=== PATIENT | female | born 1935 | race Caucasian/White ===

== ENCOUNTER 2016-10-09 08:48 | Inpatient (IN) | payer OTHER, BC ==
[~2016-10-09] VITALS: Ht 157.5 cm; Wt 63.3 kg
[~2016-10-09 08:48] MED LIST: ALPRAZOLAM0.25 M2 PO; ASCORBIC ACID250 MG PO; ASPIR 8181 M1 PO; ASPIR-LOW81 MG PO; ATARAX,VISTARIL25 MG PO; AUGMENTIN500 MG PO; AUGMENTIN875 MG PO; CALCIUM 500 MG1 EACH PO; CALCIUM500 M4 PO; CARDIZEM60 MG PO; CILOSTAZOL50 MG PO; DIGOXIN250 MCG PO; DOCUSATE SODIU100 MG PO; DUONEB 2.5-0.5 M3 ML AEROSOL; ELIQUIS5 MG PO; FERROUS SULFAT325 MG PO; FLAXSEED OIL1000 M4 PO; FLEXERIL10 MG PO; HYDROXYZINE HCL25 MG PO; HYTRIN5 MG PO; IRON160 M1 PO; LOPRESSOR50 MG PO; LOVENOX40 MG/0.4 SC; METOPROLOL TART25 MG PO; METOPROLOL TART50 MG PO; MICARDIS40 MG PO; MICARDIS80 MG PO; MOBIC7.5 MG PO; OCUVITE TABLET1 EACH PO; OMEPRAZOLE20 MG PO; OXYCODONE HCL5 MG PO; POLYETHYLENE GL17 GM PO; PRILOSEC20 MG PO; RECLAST5 MG/100 M IV; SENNA-TIME S T1 EACH PO; TELMISARTAN80 MG PO; TYLENOL REGULA325 MG PO; Tums,OsCal PO; VALIUM5 MG PO; VICODIN,LORT1 TABLET PO; VITAMIN C125 MG PO; VITAMIN D250000 UNIT PO; VITAMIN D5000 UNIT PO; XARELTO20 MG PO
[2016-10-09 19:48] VITALS: BP 155/75
[2016-10-09 19:51] VITALS: BP 155/75
[2016-10-09 23:17] VITALS: BP 156/72
[2016-10-10 03:57] VITALS: BP 166/74
[2016-10-10 05:43] LABS: HEMATOCRIT 38.4 % (36.0-46.0); MCH 30.6 PG (29.0-34.0); MCHC 33.6 G/DL (30.0-36.0); MCV 91.2 FL (83-99); MEAN PLAT.VOLUME 11.3 uM^3 (9.5-12.4); PLATELET COUNT 132 K/uL (156-360); RBC DIS.WIDTH-CV 13.6 % (11.8-14.6); RBC DIS.WIDTH-SD 45.7 % (39-53); RED BLOOD COUNT 4.21 M/uL (3.80-5.20)
[2016-10-10 05:44] LABS: WHITE BLOOD COUNT 13.7 K/uL (4.1-10.2)
[2016-10-10 06:09] LABS: ANION GAP 11 MEQ/L (2-14); CHLORIDE 106 MEQ/L (99-109); GFR ESTIMATE (CALCULATED) > 59 mL/min/; GLUCOSE 119 mg/dL (70-99); POTASSIUM 3.8 MEQ/L (3.7-5.4); SAMPLE HEMOLYSIS CHECK 0; SAMPLE ICTERIC CHECK 0; SAMPLE LIPEMIA CHECK 0; SODIUM 140 MEQ/L (136-147); UREA NITROGEN (BUN) 16 mg/dL (9-23)
[2016-10-10 07:37] VITALS: BP 154/72
[2016-10-10 10:45] VITALS: BP 138/60
[2016-10-10 11:52] VITALS: BP 140/70
[2016-10-10 19:52] VITALS: BP 102/60
[2016-10-10 23:20] VITALS: BP 94/53
[2016-10-11] VITALS (19 sets, daily range): BP systolic 102–163; BP diastolic 56–105
[2016-10-11 06:39] LABS: HEMATOCRIT 37.7 % (36.0-46.0); MCH 29.8 PG (29.0-34.0); MCHC 32.4 G/DL (30.0-36.0); MCV 92.2 FL (83-99); MEAN PLAT.VOLUME 11.5 uM^3 (9.5-12.4); PLATELET COUNT 155 K/uL (156-360); RBC DIS.WIDTH-CV 13.4 % (11.8-14.6); RED BLOOD COUNT 4.09 M/uL (3.80-5.20); WHITE BLOOD COUNT 11.8 K/uL (4.1-10.2)
[2016-10-11 07:09] LABS: ANION GAP 9 MEQ/L (2-14); CHLORIDE 104 MEQ/L (99-109); GFR ESTIMATE (CALCULATED) > 59 mL/min/; GLUCOSE 110 mg/dL (70-99); POTASSIUM 3.7 MEQ/L (3.7-5.4); SAMPLE HEMOLYSIS CHECK 0; SAMPLE ICTERIC CHECK 0; SAMPLE LIPEMIA CHECK 0; SODIUM 139 MEQ/L (136-147); UREA NITROGEN (BUN) 20 mg/dL (9-23)
[2016-10-11 11:37] LABS: BASE EXCESS 0.3 mEq/L (-3 to +3); BICARBONATE 23.3 mEq/L (22-26); CARBOXY HGB 2.6 % (0-5); COMMENTS - BLOOD GASES A+C+; DEVICE NC; METHEMOGLOBIN 1.5 % (0-1.5); O2 FLOW 5 L/MIN; PCO2 32 mm Hg (35-45); PO2 48 mm Hg (80-100); SITE LR; TOTAL RESP RATE 33 resp/min; pH 7.47 (7.35-7.45)
[2016-10-11 13:41] LABS: METH RESISTANT S AUREUS PCR NEGATIVE (NEGATIVE)
[2016-10-11 13:42] LABS: PROBE CHECK PASS; SPECIMEN PROCESSING CONTROL PASS
[2016-10-12] VITALS (17 sets, daily range): BP systolic 101–146; BP diastolic 39–80
[2016-10-12 06:23] LABS: HEMATOCRIT 36.5 % (36.0-46.0); MCH 29.7 PG (29.0-34.0); MCHC 32.9 G/DL (30.0-36.0); MCV 90.3 FL (83-99); MEAN PLAT.VOLUME 11.6 uM^3 (9.5-12.4); PLATELET COUNT 171 K/uL (156-360); RBC DIS.WIDTH-CV 13.3 % (11.8-14.6); RED BLOOD COUNT 4.04 M/uL (3.80-5.20)
[2016-10-12 07:34] LABS: ANION GAP 11 MEQ/L (2-14); CHLORIDE 105 MEQ/L (99-109); GFR ESTIMATE (CALCULATED) > 59 mL/min/; POTASSIUM 3.5 MEQ/L (3.7-5.4); SAMPLE HEMOLYSIS CHECK 0; SAMPLE ICTERIC CHECK 0; SAMPLE LIPEMIA CHECK 0; SODIUM 140 MEQ/L (136-147); UREA NITROGEN (BUN) 19 mg/dL (9-23)
[2016-10-12 07:37] LABS: GLUCOSE 208 mg/dL (70-99)
[2016-10-13 05:23] VITALS: BP 136/52
[2016-10-13 06:34] LABS: HEMATOCRIT 37.5 % (36.0-46.0); MCH 30.4 PG (29.0-34.0); MCHC 33.3 G/DL (30.0-36.0); MCV 91.2 FL (83-99); MEAN PLAT.VOLUME 11.5 uM^3 (9.5-12.4); RBC DIS.WIDTH-CV 13.5 % (11.8-14.6); RBC DIS.WIDTH-SD 45.6 % (39-53); RED BLOOD COUNT 4.11 M/uL (3.80-5.20)
[2016-10-13 06:41] LABS: PLATELET COUNT 231 K/uL (156-360); WHITE BLOOD COUNT 20.7 K/uL (4.1-10.2)
[2016-10-13 06:54] LABS: ANION GAP 8 MEQ/L (2-14); CHLORIDE 106 MEQ/L (99-109); GFR ESTIMATE (CALCULATED) > 59 mL/min/; GLUCOSE 167 mg/dL (70-99); MAGNESIUM 2.3 mg/dl (1.3-2.7); POTASSIUM 3.6 MEQ/L (3.7-5.4); SAMPLE HEMOLYSIS CHECK 0; SAMPLE ICTERIC CHECK 0; SAMPLE LIPEMIA CHECK 0; SODIUM 141 MEQ/L (136-147)
[2016-10-13 07:03] LABS: UREA NITROGEN (BUN) 31 mg/dL (9-23)
[2016-10-13 08:00] VITALS: BP 108/52
[2016-10-13 12:00] VITALS: BP 121/61
[2016-10-13 16:10] VITALS: BP 122/56
[2016-10-13 20:00] VITALS: BP 136/63
[2016-10-14] VITALS: BP 128/55
[2016-10-14 05:00] VITALS: BP 153/74
[2016-10-14 06:09] LABS: HEMATOCRIT 39.8 % (36.0-46.0); MCH 29.5 PG (29.0-34.0); MCHC 32.2 G/DL (30.0-36.0); MCV 91.7 FL (83-99); MEAN PLAT.VOLUME 11.1 uM^3 (9.5-12.4); PLATELET COUNT 258 K/uL (156-360); RBC DIS.WIDTH-CV 13.8 % (11.8-14.6); RBC DIS.WIDTH-SD 47.1 % (39-53); RED BLOOD COUNT 4.34 M/uL (3.80-5.20); WHITE BLOOD COUNT 15.7 K/uL (4.1-10.2)
[2016-10-14 06:31] LABS: ANION GAP 9 MEQ/L (2-14); CHLORIDE 106 MEQ/L (99-109); GFR ESTIMATE (CALCULATED) > 59 mL/min/; GLUCOSE 145 mg/dL (70-99); MAGNESIUM 2.5 mg/dl (1.3-2.7); POTASSIUM 4.2 MEQ/L (3.7-5.4); SAMPLE HEMOLYSIS CHECK 0; SAMPLE ICTERIC CHECK 0; SAMPLE LIPEMIA CHECK 0; SODIUM 140 MEQ/L (136-147); UREA NITROGEN (BUN) 35 mg/dL (9-23)
[2016-10-14 07:00] VITALS: BP 153/74
[2016-10-14 12:00] VITALS: BP 145/64
[2016-10-14 16:00] VITALS: BP 142/70
[2016-10-14] MEDS ORDERED: SPIRIVA RESPIMAT4 GM IH (16:29)
[2016-10-14] MEDS ORDERED: DIGOXIN250 MCG PO (16:29)
[2016-10-14] MEDS ORDERED: CEFTIN250 MG PO (16:29)
[2016-10-14] MEDS ORDERED: ADVAIR HFA120 INHALA IH (16:29)
[2016-10-14] MEDS ORDERED: LOPRESSOR25 MG PO (16:29)
== END 2016-10-14 17:25 | disposition home or self-care (01) | DRG 199 ==
LOC: OPR 08:48 → EDSTATUS 09:00 → OPR 09:00 → 3EAST 18:34 → 2SOUTH 18:34 → 3EAST 19:34 → 4WEST 10-10 07:25 → 3EAST 10-11 11:31 → 4WEST 10-11 12:07
PROVIDERS: Hospitalist; Internal Medicine; Internal Medicine Critical Care Medicine; Nurse Practitioner Family
PROC: 0BB43ZX Excision of Right Upper Lobe Bronchus, Percutaneous Approach, Diagnostic (ICD-10-PCS; principal; 2016-10-09)
PROC: 0W9930Z Drainage of Right Pleural Cavity with Drainage Device, Percutaneous Approach (ICD-10-PCS; 2016-10-10)
DX: J93.9 Pneumothorax, unspecified (principal); J95.822 Acute and chronic postprocedural respiratory failure; C34.11 Malignant neoplasm of upper lobe, right bronchus or lung; J44.1 Chronic obstructive pulmonary disease with (acute) exacerbation; I48.0 Paroxysmal atrial fibrillation; I27.2 Other secondary pulmonary hypertension; I10 Essential (primary) hypertension; I34.0 Nonrheumatic mitral (valve) insufficiency; I73.9 Peripheral vascular disease, unspecified; E66.9 Obesity, unspecified; M35.3 Polymyalgia rheumatica; Z87.891 Personal history of nicotine dependence; Z68.25 Body mass index [BMI] 25.0-25.9, adult
CPT/HCPCS: 32560; 36600; 70553; 71010; 71020; 77012; 80048; 81003; 82803; 83735; 85027; 87493; 87641; 88305; 88341 TC; 88342 TC; 94010; 94640 76; 94799; 97530 GO; 99202; C1729; C1769; G0378; J0696; J1160; J1644; J2060; J2920; J3010; J7050; J7512

== ENCOUNTER 2017-03-31 11:45 | Inpatient (IN) | payer OTHER, BC ==
[~2017-03-31] VITALS: Ht 157.5 cm; Wt 66.3 kg
[~2017-03-31 11:45] MED LIST changes: +ADVAIR HFA120 INHALA IH; +CEFTIN250 MG PO; +LOPRESSOR25 MG PO; +SPIRIVA RESPIMAT4 GM IH
[2017-03-31 13:09] LABS: HEMATOCRIT 28.3 % (36.0-46.0); MCH 31.6 PG (29.0-34.0); MCHC 33.2 G/DL (30.0-36.0); MCV 95.3 FL (83-99); MEAN PLAT.VOLUME 11.1 uM^3 (9.5-12.4); PLATELET COUNT 136 K/uL (156-360); RBC DIS.WIDTH-CV 15.3 % (11.8-14.6); RBC DIS.WIDTH-SD 52.9 % (39-53); RED BLOOD COUNT 2.97 M/uL (3.80-5.20); WHITE BLOOD COUNT 11.4 K/uL (4.1-10.2)
[2017-03-31 13:17] LABS: CHLORIDE 101 mEq/L (99-109); POTASSIUM 3.8 mEq/L (3.7-5.4); SODIUM 136 mEq/L (136-147)
[2017-03-31 13:19] LABS: GLUCOSE 155 mg/dL (70-99)
[2017-03-31 13:20] LABS: ANION GAP 16 MEQ/L (2-14)
[2017-03-31 13:23] LABS: GFR ESTIMATE (CALCULATED) 56 mL/min/
[2017-03-31 13:24] LABS: UREA NITROGEN (BUN) 14 mg/dL (9-23)
[2017-03-31 13:42] LABS: TROP-I INTERPRETATION NEGATIVE; TROPONIN-I 0.01 ng/mL (0.0-0.30)
[2017-03-31 17:46] LABS: ADD MIUA? YES; BILIRUBIN NEGATIVE; BLOOD SMALL; COLOR YELLOW ((YELLOW)); GLUCOSE (STRIP) NEGATIVE; KETONES 5; LEUKOCYTES NEGATIVE; NITRITE NEGATIVE; PROTEIN (STRIP) NEGATIVE; SPECIFIC GRAVITY 1.006 (1.000-1.030); UROBILINOGEN 0.2 MG/DL (0.2-1.0)
[2017-03-31 17:50] LABS: BACTERIA RARE /HPF; EPITHELIAL CELLS RARE /HPF; MUCUS NONE SEEN /LPF; RED BLOOD CELLS 0-5 /HPF (0-5); UCUL ADDED? NO; WHITE BLOOD CELLS 0-5 /HPF (0-5)
[2017-03-31 19:15] VITALS: BP 95/63
[2017-03-31 20:22] LABS: TROP-I INTERPRETATION NEGATIVE; TROPONIN-I < 0.01 ng/mL (0.0-0.30)
[2017-04-01 00:10] VITALS: BP 126/60
[2017-04-01 02:35] LABS: HEMATOCRIT 25.4 % (36.0-46.0); MCH 31.8 PG (29.0-34.0); MCHC 32.7 G/DL (30.0-36.0); MCV 97.3 FL (83-99); MEAN PLAT.VOLUME 10.7 uM^3 (9.5-12.4); PLATELET COUNT 126 K/uL (156-360); RBC DIS.WIDTH-CV 15.5 % (11.8-14.6); RBC DIS.WIDTH-SD 55.6 % (39-53); RED BLOOD COUNT 2.61 M/uL (3.80-5.20); WHITE BLOOD COUNT 7.6 K/uL (4.1-10.2)
[2017-04-01 02:44] LABS: CHLORIDE 111 mEq/L (99-109); POTASSIUM 3.3 mEq/L (3.7-5.4); SODIUM 141 mEq/L (136-147)
[2017-04-01 02:47] LABS: GLUCOSE 87 mg/dL (70-99)
[2017-04-01 02:48] LABS: ANION GAP 12 MEQ/L (2-14); TOTAL BILIRUBIN 0.7 mg/dL (0.0-1.0)
[2017-04-01 02:50] LABS: ALKALINE PHOSPHATASE 63 IU/L (3-129); GFR ESTIMATE (CALCULATED) > 59 mL/min/
[2017-04-01 02:51] LABS: UREA NITROGEN (BUN) 14 mg/dL (9-23)
[2017-04-01 02:57] LABS: TROP-I INTERPRETATION NEGATIVE; TROPONIN-I 0.06 ng/mL (0.0-0.30)
[2017-04-01 04:49] LABS: BASE EXCESS -2.6 mEq/L (-3 to +3); BICARBONATE 20.6 mEq/L (22-26); CARBOXY HGB 1.7 % (0-5); PCO2 29 mm Hg (35-45); PO2 61 mm Hg (80-100); pH 7.46 (7.35-7.45)
[2017-04-01 04:50] LABS: COMMENTS - BLOOD GASES C+; DEVICE NRBM; FI02 100 %; O2 FLOW 15 L/MIN; SITE RR
[2017-04-01 05:00] VITALS: BP 162/80
[2017-04-01 05:01] LABS: POINT-OF-CARE USER ID STWHLR41
[2017-04-01 05:16] LABS: HEMATOCRIT 28.7 % (36.0-46.0); MCH 31.7 PG (29.0-34.0); MCHC 32.4 G/DL (30.0-36.0); MEAN PLAT.VOLUME 10.9 uM^3 (9.5-12.4); PLATELET COUNT 160 K/uL (156-360); RBC DIS.WIDTH-CV 15.7 % (11.8-14.6); RED BLOOD COUNT 2.93 M/uL (3.80-5.20); WHITE BLOOD COUNT 17.2 K/uL (4.1-10.2)
[2017-04-01 05:37] LABS: TROP-I INTERPRETATION NEGATIVE; TROPONIN-I 0.02 ng/mL (0.0-0.30)
[2017-04-01 06:09] LABS: ANION GAP 14 MEQ/L (2-14); CHLORIDE 107 MEQ/L (99-109); GFR ESTIMATE (CALCULATED) > 59 mL/min/; GLUCOSE 127 mg/dL (70-99); POTASSIUM 3.2 MEQ/L (3.7-5.4); SAMPLE HEMOLYSIS CHECK 0; SAMPLE ICTERIC CHECK 0; SAMPLE LIPEMIA CHECK 0; SODIUM 141 MEQ/L (136-147); UREA NITROGEN (BUN) 15 mg/dL (9-23)
[2017-04-01 08:15] VITALS: BP 146/75
[2017-04-01 11:36] VITALS: BP 124/70
[2017-04-01 16:25] VITALS: BP 127/70
[2017-04-01] MEDS ORDERED: ANORO ELLIPTA1 EACH IH (17:52)
[2017-04-01] MEDS ORDERED: FOLIC ACID1 MG PO (17:52)
[2017-04-01] MEDS ORDERED: RANITIDINE HCL150 MG PO (17:56)
[2017-04-01] MEDS ORDERED: ALIMTA500 MG/20 IV (18:05)
[2017-04-01 19:42] VITALS: BP 146/73
[2017-04-02] VITALS (7 sets, daily range): BP systolic 111–139; BP diastolic 64–81
[2017-04-02 05:40] LABS: HEMATOCRIT 24.5 % (36.0-46.0); MCH 31.2 PG (29.0-34.0); MCHC 32.2 G/DL (30.0-36.0); MCV 96.8 FL (83-99); MEAN PLAT.VOLUME 11.3 uM^3 (9.5-12.4); PLATELET COUNT 153 K/uL (156-360); RBC DIS.WIDTH-CV 15.6 % (11.8-14.6); RBC DIS.WIDTH-SD 55.2 % (39-53); RED BLOOD COUNT 2.53 M/uL (3.80-5.20)
[2017-04-02 05:58] LABS: ANION GAP 11 MEQ/L (2-14); CHLORIDE 107 MEQ/L (99-109); GFR ESTIMATE (CALCULATED) > 59 mL/min/; GLUCOSE 137 mg/dL (70-99); POTASSIUM 3.8 MEQ/L (3.7-5.4); SAMPLE HEMOLYSIS CHECK 0; SAMPLE ICTERIC CHECK 0; SAMPLE LIPEMIA CHECK 0; SODIUM 141 MEQ/L (136-147); UREA NITROGEN (BUN) 17 mg/dL (9-23)
[2017-04-02] MEDS ORDERED: DECADRON10 MG/ML 1 IV (09:53)
[2017-04-02] MEDS ORDERED: B-12 COMPL1000 MCG/1 IM (09:55)
[2017-04-02] MEDS ORDERED: GRANISETRON IV (09:56)
[2017-04-03 04:25] VITALS: BP 153/108
[2017-04-03 06:45] LABS: HEMATOCRIT 26.2 % (36.0-46.0); MCH 31.3 PG (29.0-34.0); MCHC 32.1 G/DL (30.0-36.0); MCV 97.8 FL (83-99); MEAN PLAT.VOLUME 11.3 uM^3 (9.5-12.4); RBC DIS.WIDTH-CV 15.8 % (11.8-14.6); RBC DIS.WIDTH-SD 55.9 % (39-53); RED BLOOD COUNT 2.68 M/uL (3.80-5.20); WHITE BLOOD COUNT 12.4 K/uL (4.1-10.2)
[2017-04-03 06:47] LABS: PLATELET COUNT 199 K/uL (156-360)
[2017-04-03 07:15] VITALS: BP 147/65
[2017-04-03 12:30] VITALS: BP 130/68
[2017-04-03 16:30] VITALS: BP 132/68
[2017-04-03 19:46] VITALS: BP 153/68
[2017-04-04 00:48] VITALS: BP 142/62
[2017-04-04 04:06] VITALS: BP 142/58
[2017-04-04 08:00] VITALS: BP 173/82
[2017-04-04 12:00] VITALS: BP 169/85
[2017-04-04] MEDS ORDERED: CEFTIN500 MG PO (13:43)
[2017-04-04] MEDS ORDERED: LOPRESSOR50 MG PO (13:43)
[2017-04-04] MEDS ORDERED: ADVAIR HFA120 INHALA IH (13:44)
[2017-04-04] MEDS ORDERED: SPIRIVA RESPIMAT4 GM IH (13:45)
[2017-04-04] MEDS ORDERED: PREDNISONE10 MG PO (13:47)
== END 2017-04-04 17:24 | disposition home health service (06) | DRG 308 ==
LOC: EME 11:45 → 4EAST 16:05 → EDOF 16:05 → ENRESERV 16:07 → 4EAST 19:04
PROVIDERS: Emergency Medicine; Hospitalist; Internal Medicine; Physician Assistant
DX: I48.0 Paroxysmal atrial fibrillation (principal); J96.01 Acute respiratory failure with hypoxia; J44.1 Chronic obstructive pulmonary disease with (acute) exacerbation; I11.0 Hypertensive heart disease with heart failure; I50.33 Acute on chronic diastolic (congestive) heart failure; C34.32 Malignant neoplasm of lower lobe, left bronchus or lung; R09.1 Pleurisy; R04.2 Hemoptysis; D64.9 Anemia, unspecified; I27.2 Other secondary pulmonary hypertension; I34.0 Nonrheumatic mitral (valve) insufficiency; K21.9 Gastro-esophageal reflux disease without esophagitis; M81.0 Age-related osteoporosis without current pathological fracture; I95.9 Hypotension, unspecified; Z87.891 Personal history of nicotine dependence; Z90.2 Acquired absence of lung [part of]; Z79.01 Long term (current) use of anticoagulants
CPT/HCPCS: 36600; 71020; 71275; 80048; 80048 91; 80053; 80162; 81003; 82803; 82948; 83605; 83880; 84484; 85027; 87040; 93005; 94640; 94640 76; 94760; 94799; 99202; 99281; 99285; J0692; J1160; J1940; J2270; J2920; J2930; J3480; J7030; J7050; J7512